=== PATIENT | male | born 1970 | race Caucasian/White ===

== ENCOUNTER → 2021-09-06 | Outpatient (CLI) | payer SELFPAY ==
[~2021-09-06] MED LIST: ALPR2TAB2 PO; DOXY100C2 PO; HYDR1CAP2 PO
--- NOTE | 2021-09-06 18:00 | Diagnostic Imaging Report ---
INDICATION: Hypercholesterolemia, family history of coronary disease. EXAMINATION: CT coronary calcium study performed with noncontrast images of the cardiac silhouette followed by calculation of cardiac calcium score. FINDINGS: The raw data images demonstrate no evidence of thoracic aortic aneurysm. There are no enlarged nodes in the mediastinum. There is no visualized pulmonary infiltrate. There are calcified granulomata in both lungs. No significant coronary artery calcification is visualized. Calcium scoring calculation shows score of 0 for all territories. IMPRESSION: Patient's coronary calcium score was 0, no evidence of coronary calcification. Raw data images show incidental calcified granulomata in both lungs but no other significant finding. Dictated by: Dictated on workstation # [id number]
== END ==
LOC: RAD FS 13:41
PROVIDERS: ATTEND Family Medicine
DX: E78.00 Pure hypercholesterolemia, unspecified (principal); Z82.49 Family history of ischemic heart disease and other diseases of the circulatory system
CPT/HCPCS: 75571